=== PATIENT | male | born 1985 | race Caucasian/White ===

== ENCOUNTER 2018-01-10 16:53 | Inpatient (IN) | payer OTHER ==
[~2018-01-10] VITALS: Ht 188 cm; Wt 81.6 kg
--- NOTE | 2018-01-10 20:00 | NUR ---
INTAKE ASSESSMENT BP: 168/89, HR: 78, RR:16, SpO2: 96%, T:98.1 Pt is stable and able to be admitted on the unit. Unit protocols regarding medications and vital signs were explained. Pt verbalized understanding. Will continue admission upon arrival on the unit.
[2018-01-10] MEDS ORDERED: DOXY100T2 PO (20:03)
[2018-01-10] MEDS ORDERED: CEPH500C2 PO (20:07)
[2018-01-10] MEDS ORDERED: LEVE500T20 PO (20:07)
[2018-01-10] MEDS ORDERED: LORAZEPAM 1 MG TABLET PO PRN (20:15)
[2018-01-10] MEDS ORDERED: ONDANSETRON 4 MG/2 ML VIAL IM PRN (20:15)
[2018-01-10] MEDS ORDERED: LOPERAMIDE HCL 2 MG CAPSULE PO PRN ×2 (20:15)
[2018-01-10] MEDS ORDERED: LORAZEPAM 2 MG/1 ML VIAL IM PRN (20:15)
[2018-01-10] MEDS ORDERED: MAG HYDROX/AL HYDROX/SIMETH 30 ML LIQUID UDC PO PRN (20:15)
[2018-01-10] MEDS ORDERED: diphenhydrAMINE 50 MG CAPSULE PO PRN (20:15)
[2018-01-10] MEDS ORDERED: IBUPROFEN 600 MG TABLET PO PRN (20:15)
[2018-01-10] MEDS ORDERED: MIRALAX 17 GM POWD.PACK PO PRN (20:15)
[2018-01-10] MEDS ORDERED: ONDANSETRON ODT 4 MG TAB.RAPDIS SL PRN (20:15)
[2018-01-10] MEDS: LEVETIRACETAM 500 MG TABLET PO SCH (20:15)
[2018-01-10] MEDS ORDERED: PHENOBARBITAL 60 MG TABLET PO ONE (20:30)
[2018-01-10] MEDS ORDERED: TRET45GE36 TP (20:58)
[2018-01-10] MEDS ORDERED: MUPI22OI2 (20:58)
[2018-01-10] MEDS: DOXYCYCLINE HYCLATE 100 MG TABLET PO SCH (21:00)
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
[2018-01-10 22:07] LABS: *AMPHETAMINE, URINE NEGATIVE (NEGATIVE); *BARBITURATE, URINE NEGATIVE (NEGATIVE); *CANNABINOID, URINE POSITIVE (NEGATIVE); *COCCAINE, URINE NEGATIVE (NEGATIVE); *OPIATE, URINE NEGATIVE (NEGATIVE); *PHENCYCLIDINE SCREEN,URINE NEGATIVE (NEGATIVE)
--- NOTE | 2018-01-10 22:28 | NUR ---
PRN ZOFRAN SL & BENADRYL Patient reports nausea and difficulty sleeping stating, "I've been up since 4am but I can't sleep." PRN Zofran given SL and PRN Benadryl given PO. Safety measures in place, side rails up x2, bed locked in low position, call light within reach. Will monitor for effectiveness.
[2018-01-10 22:29] LABS: BASOPHILS # (AUTO) 0.1 K/uL (0.0-8.0); EOSINOPHILS # (AUTO) 0.2 K/uL (0.0-0.7); EOSINOPHILS % (AUTO) 1.8 % (0.0-7.0); HEMATOCRIT 41.8 % (36.7-47.1); HEMOGLOBIN 14.3 g/dL (12.5-16.3); LYMPHOCYTES # (AUTO) 3.3 K/uL (20.0-40.0); LYMPHOCYTES % (AUTO) 36.6 % (20.5-51.5); MEAN CORPUSCULAR HEMOGLOBIN 32.3 uug (23.8-33.4); MEAN CORPUSCULAR HGB CONC 34 g/dL (32.5-36.3); MEAN CORPUSCULAR VOLUME 94.4 fL (73.0-96.2); MONOCYTES # (AUTO) 0.8 K/uL (2.0-10.0); MONOCYTES % (AUTO) 8.7 % (0.0-11.0); NEUTROPHILS # (AUTO) 4.7 K/uL (1.8-8.9); NEUTROPHILS % (AUTO) 51.9 % (38.5-71.5); PLATELET COUNT (AUTO) 525 K/uL (152-348); RED BLOOD CELL COUNT(AUTO) 4.42 MIL/uL (4.06-5.63)
--- NOTE | 2018-01-10 22:58 | NUR ---
PRN ZOFRAN REASSESSMENT Patient reports that nausea has improved and asks nurse for a snack from the kitchen. PRN Zofran noted to be effective. Safety measures in place, call light within reach. Will continue to monitor.
--- NOTE | 2018-01-10 23:28 | NUR ---
PRN BENADRYL REASSESSMENT Patient reports feeling awake and unable to sleep at this time. PRN Benadryl noted to be ineffective. Safety measures in place, side rails up x2, bed locked in low position, call light within reach. Will continue to monitor.
[2018-01-10] MEDS ORDERED: TRAZODONE 50 MG TABLET PO ONE (23:30)
[2018-01-10] MEDS: LORAZEPAM 1 MG TABLET PO PRN (23:30)
--- NOTE | 2018-01-10 23:30 | NUR ---
CIWA 16, PRN ATIVAN 2mg & ONE-TIME TRAZODONE 50mg Patient continues to be anxious, restless, agitated and irritable, unable to sleep. He complains of feeling extremely cold, he has requested 3 extra blankets, and continues to be diaphoretic and tremulous. Current CIWA 16. PRN Ativan 2mg given PO for CIWA greater than or equal to 16. One-time Trazodone 50mg given PO for difficulty sleeping. Safety measures in place, call light within reach. Will monitor for effectiveness.
[2018-01-10] MEDS ORDERED: BUPR100T6 PO (23:35)
[2018-01-10] MEDS ORDERED: EMTR1TAB6 PO (23:35)
[2018-01-10] MEDS ORDERED: ACET-2154 PO (23:35)
[2018-01-10] MEDS ORDERED: BUPR-51 PO (23:35)
[2018-01-10] MEDS ORDERED: VALA500T34 PO (23:35)
[2018-01-10 23:54] LABS: ETHANOL < 3 MG/DL (0-0)
[2018-01-10 23:59] LABS: ALANINE AMINOTRANSFERASE 88 U/L (16-63); ALKALINE PHOSPHATASE 65 U/L (50-136); ASPARTATE AMINOTRANSFERASE 50 U/L (15-37); BILIRUBIN,TOTAL 0.2 mg/dL (0.2-1.0); CARBON DIOXIDE 30 mmol/L (21-32); CHLORIDE 102 mmol/L (98-107); CREATININE 1.3 mg/dL (0.6-1.3); GLUCOSE 88 mg/dL (74-106); MAGNESIUM 1.7 mg/dL (1.8-2.4); POTASSIUM 3.9 mmol/L (3.5-5.1); TOTAL PROTEIN, SERUM 7.2 g/dL (6.4-8.2); UREA NITROGEN, BLOOD 9 mg/dL (7-18)
[2018-01-11] VITALS: BP 132/60
--- NOTE | 2018-01-11 00:30 | NUR ---
CIWA 14, PRN ATIVAN 2mg REASSESSMENT Patient verbalizes improvement in withdrawal symptoms. Current CIWA 14. PRN Ativan noted to be effective. Patient has turned off the lights in his room stating, "I'm going to try and sleep now." Safety measures in place, side rails up x2, bed locked in low position, call light within reach. Will continue to monitor.
[2018-01-11 00:57] LABS: THYROID STIMULATING HORMONE 1.077 mIU/mL (0.358-3.740)
[2018-01-11 04:00] VITALS: BP 104/56
--- NOTE | 2018-01-11 04:00 | NUR ---
CIWA DEFERRED CIWA deferred at this time due to patient sleeping; to be assessed while patient is awake. Respirations even and unlabored, 16/min. Safety measures in place, side rails up x2, bed locked in low position, call light within reach. Will continue to monitor.
--- NOTE | 2018-01-11 04:49 | NUR ---
CIWA 12, PRN ATIVAN 1mg Patient is awake and complaining of anxiety, restlessness, chills and diaphoresis, fine tremors noted bilaterally. Current CIWA 12. PRN Ativan 1mg given PO for CIWA between 5-15, per MD order. Safety measures in place, side rails up x2, bed locked in low position, call light within reach. Will monitor for effectiveness.
--- NOTE | 2018-01-11 05:49 | NUR ---
PRN ATIVAN REASSESSMENT Patient is asleep in bed, eyes closed, respirations even and unlabored. Unable to reassess at this time. Safety measures in place, side rails up x2, bed locked in low position, call light within reach. Will continue to monitor.
--- NOTE | 2018-01-11 07:35 | NUR ---
END OF SHIFT Patient is a 32-year-old male admitted on 01/10/18 for benzodiazepine withdrawal. Patient will begin a 5-day Phenobarbital taper today. Patients last CIWA was 12 this morning at 0450. Patient received PRN Zofran, PRN Benadryl, PRN Ativan 2mg, and PRN Ativan 1mg. Patient also received a one-time Trazodone 50mg PO. PRN medications noted to be effective. Patient slept for 5 hours, total intake of 900mL, void x2, stool x0. Patient is on fall and seizure precautions with one possible seizure on 11/19/17, after which he began taking Keppra daily as prophylaxis. Safety measures in place, side rails up x2, bed locked in low position, call light within reach. Will endorse to day shift.
[2018-01-11 08:00] VITALS: BP 122/65
--- NOTE | 2018-01-11 08:05 | NUR ---
START OF SHIFT: Received Pt A/O X 4. He presents with fidgety with anxious mood and congruent affect. He reports mild nausea, anxiety,irritability and agitation.He also reports shoulder pain 5/10 on pain scale Phenobarbital taper in progress to manage s/s of w/d. PRN Tylenol given to manage pain. Will monitor effectiveness. Encouraged increased fluids to assist in facilitating detox process. PPD refused. Will continue to monitor and manage s/s of w/d.
[2018-01-11] MEDS: ACETAMINOPHEN 325 MG TABLET PO PRN ×2 (08:40→17:13)
[2018-01-11] MEDS: LEVETIRACETAM 500 MG TABLET PO SCH ×2 (08:40→17:12)
[2018-01-11] MEDS: MULTIVITAMINS,THERAPEUTIC TABLET PO SCH (08:41)
[2018-01-11] MEDS: CEPHALEXIN MONOHYDRATE 500 MG CAPSULE PO SCH ×2 (08:41→20:15)
[2018-01-11] MEDS: DOXYCYCLINE HYCLATE 100 MG TABLET PO SCH ×2 (08:41→20:15)
[2018-01-11] MEDS: PHENOBARBITAL 60 MG TABLET PO SCH ×3 (08:41→20:15)
[2018-01-11] MEDS ORDERED: MAGNESIUM OXIDE 400 MG TABLET PO ONE (09:00)
[2018-01-11] MEDS ORDERED: 5 DAY PHENOBARBITAL TAPER -SERENITY PROTOCOL PO PRN (09:00)
[2018-01-11] MEDS ORDERED: TUBERCULIN,PURIF.PROT.DERIV. 5 TU/0.1 ML TEST ID ONE (09:00)
--- NOTE | 2018-01-11 09:05 | NUR ---
Pt states the Tylenol was effective. Pain is now 2/10 on scale.
[2018-01-11] MEDS: LORAZEPAM 1 MG TABLET PO PRN (10:28)
--- NOTE | 2018-01-11 10:30 | NUR ---
Pt reports agitation ,anxiety,sweats and restlessness. CIWA 16. Ativan 2mg PO PRN given to manage s/s of w/d. Will monitor effectiveness.
--- NOTE | 2018-01-11 11:15 | NUR ---
Pt states the Ativan was effective.He states he feels a little bit calmer. CIWA 11. Will continue to monitor and offer support.
[2018-01-11 12:00] VITALS: BP 122/65
[2018-01-11] MEDS: VALACYCLOVIR HCL 500 MG TABLET PO SCH (14:00)
[2018-01-11] MEDS ORDERED: [UNRECOGNIZED DRUG - OTHER] TOP PRN (14:00)
[2018-01-11] MEDS: [UNRECOGNIZED DRUG - OTHER] PO SCH (14:00)
[2018-01-11] MEDS ORDERED: TRETINOIN 0.1% TOP PRN (14:00)
[2018-01-11 16:00] VITALS: BP 137/64
--- NOTE | 2018-01-11 19:16 | NUR ---
END OF SHIFT: Pt started on Phenobarbital taper today to manage s/s of w/d which include anxiety,agitation,sweats,restlessness and mild nausea. Last CIWA 10. PRN Tylenol given X 2 for shoulder pain and effective. Ativan 2 mg PO PRN given for elevated CIWA and effective. He was compliant with increased fluids. He was unable to sleep last night and is concerned he wont be able to sleep again tonight. Discussed with Psych MD but no new orders received. Will endorse to evening or night nurse supervisor nurse.
--- NOTE | 2018-01-11 19:30 | NUR ---
Start of Shift Received Patient. Per endorsement, Patient is a 32 year old male currently receiving a modified Phenobarbital taper for Benzodiazepine withdrawal. Patient continues on home medications of Keflex, Doxycycline, and Keppra. PPD and Flu vaccine refused. Patient Received PRN Ativan 2mg for elevated CIWA of 16 with medication noted to be effective with CIWA 11. He also refused PRN Tylenol x2 with shoulder pain. Last noted CIWA 10. Upon rounds patient was noted to in his room, awake, alert and verbally responsive. He was noted to request medication as soon as medication can be administered. He states Im normally one that goes to be early. Patient is noted to restless, anxious, easily agitated, flushed, and tremulous to touch. Reviewed scheduled medication with patient and he verbalized understanding. All needs attended to promptly. Will continue with plan of care as ordered.
[2018-01-11 20:09] VITALS: BP 139/80
[2018-01-11] MEDS: CLONIDINE HCL 0.1 MG TABLET PO PRN (20:15)
--- NOTE | 2018-01-11 20:15 | NUR ---
CIWA Assessment/PRN Medication Administration Patient is noted verbalizing increased anxiety, chills, sweats, restlessness, tremulous, and agitated. CIWA noted to be 14. PRN Clonidine administered with routine medications. All needs attended to promptly. Will continue to monitor.
[2018-01-11] MEDS ORDERED: ACETAMINOPHEN ES 500 MG TABLET ONE (21:11)
[2018-01-11] MEDS: ACETAMINOPHEN ES 500 MG TABLET PO PRN (21:15)
[2018-01-11] MEDS: TRAZODONE 50 MG TABLET PO PRN (21:15)
--- NOTE | 2018-01-11 21:15 | NUR ---
PRN Medication Reassessment/PRN Medication Administration Patient is noted in bed. He continues to be restless, anxious, and verbalizing inability of falling asleep, and shoulder pain. New orders obtains for an increase in trazodone and Tylenol extra strength. Orders carried out and administered as ordered. PRN Clonidine noted to be effective in minimizing sweats and chills. All needs attended to promptly. Will continue plan of care as ordered.
--- NOTE | 2018-01-11 22:15 | NUR ---
PRN Medication Reassessment patient is noted in bed with eyes closed. breathing even and non labored. No signs of restlessness or discomfort noted. PRN Trazodone and Tylenol noted to be effective. Will continue to monitor.
--- NOTE | 2018-01-12 00:20 | NUR ---
CIWA and Vitals Patient is noted in bed with eyes closed. Breathing even and non labored. No signs of restlessness or discomfort noted. Vitals Refused. CIWA not able to be completed as per order. Will continue to monitor.
--- NOTE | 2018-01-12 04:10 | NUR ---
Vitals and CIWA Patient is noted in bed with eyes closed. breathing even and non labored. no signs of facial grimacing or restlessness noted. Vitals Refused. CIWA not able to be completed as per order. Will continue to monitor.
--- NOTE | 2018-01-12 05:03 | NUR ---
One-time Ativan Patient with increasing agitation, is restless and anxious. Patient also c/o intensifying gross tremors and appears flushed. CIWA=17. contacted and he ordered one-time Ativan 2 mg PO.
[2018-01-12 05:07] VITALS: BP 123/71
[2018-01-12] MEDS ORDERED: ACETAMINOPHEN ES 500 MG TABLET ONE (05:26)
[2018-01-12] MEDS ORDERED: LORAZEPAM 1 MG TABLET PO ONE (05:30)
[2018-01-12] MEDS: ACETAMINOPHEN ES 500 MG TABLET PO PRN ×2 (05:39→20:03)
[2018-01-12 06:06] LABS: HEPATITIS B SURFACE AG Negative (Negative)
--- NOTE | 2018-01-12 07:17 | NUR ---
End of Shift Patient is noted in bed with eyes closed. Breathing even and non labored. Patient continues on a modified Phenobarbital taper for Benzodiazepine withdrawal. Patient continues on home medications of Keflex, Doxycycline, and Keppra. Patient received PRN Clonidine, Trazodone, Tylenol ES x2, and Ativan 2mg x1. Patients last noted CIWA 17. Patient continues to be monitored for increased anxiety, restlessness, and irritable, flushed, tremulous, and increased pain to left shoulder. Patient noted to sleep a total of 7 hours. All needs attended to promptly. Will endorse to continue with plan of care as ordered.
[2018-01-12 08:00] VITALS: BP 113/60
--- NOTE | 2018-01-12 08:00 | NUR ---
Start of Shift Notes/CIWA Assessment: Received endorsement from night nurse. Patient is a 32 year old male admitted on 01/10/2018 for BZO withdrawal who was placed on a 5-day Phenobarbital taper as ordered. Per night nurse, patient received Tylenol ES x 2 due to shoulder pain from a ground level fall, OT Ativan 2 mg, Clonidine and Trazodone as ordered. Patient's last CIWA 17. Slept for 7 hours. Patient was received in his room. Appears disheveled. Alert and oriented x 4. No changes in LOC noted. Denies AV hallucinations. Denies S/I or H/I noted. Worried facial expression noted. Affect is flat. Mood congruent. He complains of racing thoughts, intermittent perspiration during the night, anxiety, nervousness, difficulty concentrating, and fatigue. He is noted with gross tremors, and facial flushing. CIWA 17 at this time. Room is messy. Encouraged patient to maintain his personal hygiene and space. Educated patient on his current plan of care for the day and his medication regimen. Encouraged oral fluid intake and encouraged group participation to learn new skills to prevent relapse. All needs met and attended. Will continue to monitor.
[2018-01-12] MEDS: PHENOBARBITAL 60 MG TABLET PO SCH ×4 (08:28→20:03)
[2018-01-12] MEDS: [UNRECOGNIZED DRUG - OTHER] PO SCH (08:28)
[2018-01-12] MEDS: LEVETIRACETAM 500 MG TABLET PO SCH ×2 (08:29→16:13)
[2018-01-12] MEDS: DOXYCYCLINE HYCLATE 100 MG TABLET PO SCH ×2 (08:29→20:02)
[2018-01-12] MEDS: MULTIVITAMINS,THERAPEUTIC TABLET PO SCH (08:29)
[2018-01-12] MEDS: CEPHALEXIN MONOHYDRATE 500 MG CAPSULE PO SCH ×2 (08:29→20:03)
[2018-01-12] MEDS: VALACYCLOVIR HCL 500 MG TABLET PO SCH (08:32)
[2018-01-12] MEDS ORDERED: buPROPion 75 MG TABLET PO SCH (09:00)
--- NOTE | 2018-01-12 09:05 | NUR ---
Wellbutrin at 0900 not administered: Patient refused to take Wellbutrin at 0900. Educated patient on the risk and disadvantages of non-adhering to meds but patient still refused. Offered 3x. Patient still refused. Will notify psych MD. Will continue to monitor. Wellbutrin not administered.
[2018-01-12] MEDS ORDERED: METHOCARBAMOL 500 MG TABLET PO PRN (10:45)
[2018-01-12 12:00] VITALS: BP 116/58
[2018-01-12] MEDS: METHOCARBAMOL 750 MG TABLET PO PRN (12:13)
--- NOTE | 2018-01-12 12:13 | NUR ---
CIWA Assessment/Robaxin 750 mg PO given: CIWA 14, patient continues to present with gross tremors, anxiety, agitation, racing thoughts, difficulty concentrating, fatigue, malaise and complains of right shoulder pain. Ice packs provided. Medicated patient with Robaxin 750 mg PO as ordered. Will monitor for effectiveness.
--- NOTE | 2018-01-12 13:13 | NUR ---
Re-assessment: Robaxin Patient verbalizes that pain level is now a 3 out of 10. PRN Robaxin was effective.
[2018-01-12] MEDS: CLONIDINE HCL 0.1 MG TABLET PO PRN ×2 (13:47→20:02)
[2018-01-12] MEDS: HYDROXYZINE PAMOATE 25 MG CAPSULE PO PRN ×2 (13:47→20:03)
--- NOTE | 2018-01-12 13:47 | NUR ---
Clonidine 0.1mg/Vistaril 50 mg PO given: Patient was noted to complain of increased anxiety, facial flushing, sweating and tremors. He complains of racing thoughts and appears restless and agitated. Pacing in the room. Non-pharmacological interventions provided but ineffective. Medicated patient with Clonidine 0.1mg PO and Vistaril 50 mg PO as ordered. Will monitor for effectiveness.
--- NOTE | 2018-01-12 14:47 | NUR ---
Re-assessment: Clonidine/Vistaril Patient verbalizes relief from anxiety. He states "I feel more mellow, thank you." PRN Vistaril and Clonidine effective.
[2018-01-12 16:00] VITALS: BP 125/80
--- NOTE | 2018-01-12 16:06 | NUR ---
CIWA Assessment: CIWA 12, patient continues to present with gross tremors, anxiety, agitation, racing thoughts, difficulty concentrating, fatigue, malaise and generalized discomfort. Will medicate patient as ordered.
--- NOTE | 2018-01-12 19:02 | NUR ---
End of Shift Notes: Patient continues to be on 5-day Phenobarbital taper as ordered. No adverse reactions noted. VS monitored closely. No significant abnormalities noted. Withdrawal symptoms were closely monitored. Initial CIWA 17, patient presented with gross tremors, intermittent perspiration, facial flushing, racing thoughts, fatigue, insomnia, difficulty concentrating, myalgia, worried facial expression, depressed mood, poor regards to hygiene and generalized discomfort. Last CIWA 12. Patient verbalizes that Phenobarbital taper has been effective in reducing his withdrawal symptoms. He was unable to participate in group due to generalized discomfort although encouraged. Medicated patient with Robaxin 750 mg PO at 1213, Clonidine and Vistaril 50 mg PO at 1347 with help. Patient requires encouragement to attend group and socialize due to social isolation. Appetite fair. Oral fluids encouraged. Patient was seen and examined by Dr. Redd with new orders for Robaxin and to recheck Mag level as ordered. All needs met and attended. Will continue to monitor closely.
--- NOTE | 2018-01-12 19:30 | NUR ---
Start of Shift Patient Received. Patient is a 32 year old male that continues on a modified Phenobarbital taper for Benzo withdrawal. Patient tolerated well with no adverse reactions noted. Patient was seen and examined by MD with new order for Robaxin PRN and new orders for labs in the AM. Patient received PRN Robaxin, Clonidine, and Vistaril administered with medications noted to be effective. Last noted CIWA 12. Upon rounds patient is noted in his room, awake, in bed watching TV. Patient is noted with increased anxiety, intermittent chills and sweats, tremors, flushed face, with worried, depressed facial expression. Room is noted to be odorous. Encouraged patient to shower and patient verbalized understanding. Linen was changed for patient. All needs attended to promptly. Will continue plan of care as ordered.
[2018-01-12 20:00] VITALS: BP 138/81
--- NOTE | 2018-01-12 20:00 | NUR ---
CIWA Assessment/PRN Medication Administration Patient is noted with increased anxiety, chills, sweats, restlessness, irritability, inability of falling asleep, tremulous, and increased pain to the right shoulder due to previous injury. PRN Trazodone, Vistaril, Clonidine, Tylenol, and MOM administered with routine medications. Will continue to monitor.
[2018-01-12] MEDS: MAGNESIUM HYDROXIDE 30 ML LIQUID UDC PO PRN (20:01)
[2018-01-12] MEDS: TRAZODONE 50 MG TABLET PO PRN (20:02)
--- NOTE | 2018-01-12 21:00 | NUR ---
PRN medication Reassessment patient is noted in bed with eyes closed. Breathing even and non labored. No signs of restlessness or discomfort noted. PRN Clonidine, Tylenol, Trazodone, Vistaril all noted to be effective. Will continue to monitor.
--- NOTE | 2018-01-13 00:24 | NUR ---
Vitals and CIWA Assessment patient is noted in bed with eyes closed. Breathing even and non labored. No signs of restlessness or discomfort noted. Vitals Refused. CIWA assessment not able to be completed as per order. Will continue to monitor.
--- NOTE | 2018-01-13 04:30 | NUR ---
CIWA and Vitals Patient is noted in bed with eyes closed. Breathing even and non labored. No restlessness or facial grimacing noted. Vitals Refused. CIWA not able to be completed as per order. Will continue to monitor.
--- NOTE | 2018-01-13 07:02 | NUR ---
End of Shift Patient is noted in bed with eyes closed. Breathing even and non labored. He continues on a modified Phenobarbital taper for Benzo withdrawal. Patient tolerated well with no adverse reactions noted. Vital signs and withdrawal symptoms closely monitored. Patient Received PRN Clonidine, Vistaril, Trazodone, and Tylenol with medications noted to be effective. PRN MOM administered with morning shift to reassess. Patient noted to sleep a total of 8 hours. Last noted CIWA 14. Patient continues to be monitored for intermittent chills and sweats, tremors, anxiety, restlessness, and agitation. He is noted with worried, depressed expression. All needs attended to promptly. Will endorse to continue plan of care as ordered.
[2018-01-13 08:00] VITALS: BP 119/74
--- NOTE | 2018-01-13 08:15 | NUR ---
START OF SHIFT: Received Pt A/O X 4. He presents with anxious mood and congruent affect. He reports anxiety,irritability and intermittent sweats.CIWA 9. He also reports shoulder pain 6/10 on pain scale Phenobarbital taper in progress to manage s/s of w/d. PRN Tylenol ES given to manage pain. Will monitor effectiveness. Encouraged increased fluids to assist in facilitating detox process.Encouraged group attendance to improve coping skills and prevent relapse. Will continue to monitor and manage s/s of w/d.
[2018-01-13] MEDS: CEPHALEXIN MONOHYDRATE 500 MG CAPSULE PO SCH ×2 (08:36→20:36)
[2018-01-13] MEDS: DOXYCYCLINE HYCLATE 100 MG TABLET PO SCH ×2 (08:36→20:36)
[2018-01-13] MEDS: LEVETIRACETAM 500 MG TABLET PO SCH ×2 (08:37→16:40)
[2018-01-13] MEDS: MULTIVITAMINS,THERAPEUTIC TABLET PO SCH (08:37)
[2018-01-13] MEDS: PHENOBARBITAL 60 MG TABLET PO SCH ×3 (08:37→20:36)
[2018-01-13] MEDS: ACETAMINOPHEN ES 500 MG TABLET PO PRN (08:37)
[2018-01-13] MEDS: [UNRECOGNIZED DRUG - OTHER] PO SCH (08:38)
[2018-01-13] MEDS: VALACYCLOVIR HCL 500 MG TABLET PO SCH (08:41)
--- NOTE | 2018-01-13 09:15 | NUR ---
PRN Tylenol ES was effective. Pt states pain now 3/10 on pain scale.
--- NOTE | 2018-01-13 10:55 | NUR ---
Therapist prompted client to attend group therapy.
[2018-01-13] MEDS: HYDROXYZINE PAMOATE 25 MG CAPSULE PO PRN (10:56)
--- NOTE | 2018-01-13 10:57 | NUR ---
PRN Vistaril 50 mg given for reported anxiety. Will monitor effectiveness.
--- NOTE | 2018-01-13 11:02 | NUR ---
Endorsement given. All pertinent information relayed. Pt is A/O X 4.
--- NOTE | 2018-01-13 11:03 | NUR ---
ENDORSEMENT Pt endorsed to me. All information received.
[2018-01-13 12:00] VITALS: BP 132/81
--- NOTE | 2018-01-13 12:00 | NUR ---
CIWA ASSESSMENT ciwa=10. Bilateral hand tremors noted. Anxious and restless. Irritable. Complaints of generalized discomfort.
[2018-01-13] MEDS: METHOCARBAMOL 750 MG TABLET PO PRN ×2 (12:16→20:37)
--- NOTE | 2018-01-13 12:16 | NUR ---
PRN BACTROBAN ROBAXIN Complaints of right shoulder ache 08/30. Robaxin po prn per MD order given. Bactroban topical prn per MD order given for wound on face.
[2018-01-13] MEDS: MUPIROCIN 2% OINT 22 GM TUBE TP PRN (12:19)
--- NOTE | 2018-01-13 13:16 | NUR ---
PRN [place] Pt states medication effective.
[2018-01-13] MEDS: LIDOCAINE 5% PATCH TD PRN (14:39)
--- NOTE | 2018-01-13 14:43 | NUR ---
PRN LIDOCAINE Pt with complaints of right shoulder pain 08/30. Lidocaine patch prn per MD order given.
--- NOTE | 2018-01-13 15:43 | NUR ---
PRN LIDOCAINE EVAL pt states patch is effective. Pain 4/10.
[2018-01-13 16:00] VITALS: BP 154/98
--- NOTE | 2018-01-13 16:00 | NUR ---
CIWA ASSESSMENT ciwa=10. Anxious and restless. Pressured speech. Bilateral hand tremors noted. Complaints of generalized discomfort and intermittent perspiration.
[2018-01-13] MEDS: CLONIDINE HCL 0.1 MG TABLET PO PRN (16:40)
--- NOTE | 2018-01-13 16:48 | NUR ---
PRN CATAPRES Pt states very anxious. ei=[id number]. Catapres po prn per MD order given.
--- NOTE | 2018-01-13 17:48 | NUR ---
PRN CATAPRES EVAL Pt states medication effective.
--- NOTE | 2018-01-13 18:36 | NUR ---
END OF SHIFT Pt 32 y/o male admitted for medically supervised benzo withdrawal. Pt alert and oriented to name, place, and time. P[place]. Skin warm and moist to touch. Respirations even and unlabored. Appears disheveled. Clothes and empty drink bottles scattered throughout the room. Encouraged to maintain hygiene. Anxious and restless. Periods of irritability and agitation. Bilateral hand tremors noted. Complaints of generalized discomfort. Isolative to room with minimal peer interaction. Pt attended group activity. Last ciwa=10@1600. Pt is on a 5 day Phenobarbital taper and is on day 3. Bed on lowest position with side rails x2 up for safety. Call light within reach.
--- NOTE | 2018-01-13 19:30 | NUR ---
Start of Shift Patient Received. Per endorsement, patient continues on a modified Phenobarbital taper for Benzo withdrawal. Patient tolerated well with no adverse reactions noted. Patient was seen and evaluated by MD with new orders to increase Robaxin to 1500mg as well as new order for Lidocaine patch to right shoulder. Patient received PRN Clonidine, Vistaril, Tylenol, and Robaxin. Last noted CIWA 10. Upon rounds, patients room is noted to be odorous, with clothes and empty drink bottles noted throughout the room. Patient is noted in the activities room participating in a group meeting. Will continue plan of care as ordered.
[2018-01-13 20:09] VITALS: BP_SYST 118; BP_SYST 156; BP_DIAS 72; BP_DIAS 75
--- NOTE | 2018-01-13 20:33 | NUR ---
WA Assessment Patient is noted in his room, awake, alert and verbally responsive. Breathing even and non labored. He is noted to verbalize racing thoughts, increased sweats, increased anxiety, and agitation. He is noted to be tremulous to touch, restlessness. Patient is disheveled with worried affect. Patient has been noted to be compliant with group and social interactions.
[2018-01-13] MEDS: LACTOBACILLUS RHAMNOSUS GG 1 EACH CAPSULE PO SCH (20:36)
[2018-01-13] MEDS: TRAZODONE 50 MG TABLET PO PRN (20:37)
--- NOTE | 2018-01-13 20:44 | NUR ---
PRN Medication Administration Patient is noted verbalizing increased anxiety, racing thoughts, body aches, inability of falling asleep. PRN Trazodone and Robaxin administered with routine medications. Will continue to monitor.
--- NOTE | 2018-01-13 21:45 | NUR ---
PRN Medication Reassessment Patient is noted in bed with eyes closed. Breathing even and non labored. No signs of restlessness or discomfort noted. PRN Trazodone and Robaxin noted to be effective. Will continue to monitor.
--- NOTE | 2018-01-14 00:30 | NUR ---
CIWA and Vitals Patient is noted in bed with eyes closed. Breathing even and non labored. No signs of restlessness or facial grimacing noted. Vitals Refused. CIWA not able to be completed as per order. Will continue to monitor.
--- NOTE | 2018-01-14 04:30 | NUR ---
CIWA and Vitals Patient is noted in bed with eyes closed. Breathing even and non labored. No signs of restlessness or facial grimacing noted. Patient noted to refuse vitals. CIWA not able to be completed as per order. Will continue to monitor.
[2018-01-14] MEDS: METHOCARBAMOL 750 MG TABLET PO PRN ×2 (05:52→19:57)
--- NOTE | 2018-01-14 05:55 | NUR ---
PRN Medication Administration Patient is noted awake and verbalizing increased shoulder pain. PRN Robaxin administered. Will continue to monitor.
--- NOTE | 2018-01-14 06:59 | NUR ---
PRN Medication Reassessment/ End of Shift Patient is in bed awake, alert and verbally responsive. Breathing even and non labored. Patient continues on a modified Phenobarbital taper for Benzo withdrawal. Patient tolerated well with no adverse reactions noted. Vital signs and withdrawal symptoms closely monitored. Patient received PRN Trazodone, Robaxin x2 with medication noted to be effective. Last noted CIWA 12. Patient continues to be monitored for increased racing thoughts, increased sweats, increased anxiety, and agitation. He is noted to be tremulous to touch, restlessness. Patient is disheveled with worried affect. Patient has been noted to be compliant with group and social interactions. Patients room is noted to be odorous, with clothes and empty drink bottles noted throughout the room. Patient noted to sleep a total of 8 hours. Will endorse to continue plan of care as ordered.
[2018-01-14 08:00] VITALS: BP 126/62
--- NOTE | 2018-01-14 08:00 | NUR ---
START OF SHIFT AND CIWA ASSESSMENT Pt 32 y/o male admitted for medically supervised benzo withdrawal. Pt received in room on bed awake watching television. Pt alert and oriented to name, place, and time. [place]. Skin warm and moist to touch. Respirations even and unlabored. Appears disheveled. Clothes scattered throughout the room. Encouraged to maintain hygiene. Anxious and restless. Pressured speech. Bilateral hand tremors. Complaints of intermittent perspirations. Complaints of body aches, mostly on right shoulder. Ciwa=10 @0800. It was reported that pt slept for 8 hours last night. Ciwa=12@2000. Pt is on a 5 day Phenobarbital taper and is on day 4. Bed on lowest position with side rails x2 up for safety. Call light within reach.
[2018-01-14] MEDS: CEPHALEXIN MONOHYDRATE 500 MG CAPSULE PO SCH ×2 (08:17→20:10)
[2018-01-14] MEDS: PHENOBARBITAL 60 MG TABLET PO SCH ×2 (08:17→20:11)
[2018-01-14] MEDS: DOXYCYCLINE HYCLATE 100 MG TABLET PO SCH ×2 (08:17→20:10)
[2018-01-14] MEDS: MULTIVITAMINS,THERAPEUTIC TABLET PO SCH (08:17)
[2018-01-14] MEDS: LEVETIRACETAM 500 MG TABLET PO SCH ×2 (08:17→16:56)
[2018-01-14] MEDS: LACTOBACILLUS RHAMNOSUS GG 1 EACH CAPSULE PO SCH ×2 (08:17→20:11)
[2018-01-14] MEDS: ACETAMINOPHEN ES 500 MG TABLET PO PRN ×2 (08:18→19:57)
[2018-01-14] MEDS: MUPIROCIN 2% OINT 22 GM TUBE TP PRN (08:18)
[2018-01-14] MEDS: [UNRECOGNIZED DRUG - OTHER] PO SCH (08:18)
[2018-01-14] MEDS: VALACYCLOVIR HCL 500 MG TABLET PO SCH (08:18)
--- NOTE | 2018-01-14 08:30 | NUR ---
PRN TYLENOL BACTROBAN Pt states has c/o right shoulder pain 07/31. Tylenol prn per MD order given. Bactroban topical prn per MD order for wound on face.
--- NOTE | 2018-01-14 09:30 | NUR ---
PRN TYLENOL BACTROBAN Pt states medication effective.
[2018-01-14 12:00] VITALS: BP 155/95
--- NOTE | 2018-01-14 12:00 | NUR ---
CIWA ASSESSMENT ciwa=10. Bilateral hand tremors noted. Anxious and restless. Pressured speech. Intermittent perspiration. Complaints of body aches, mostly on right shoulder.
[2018-01-14] MEDS: CLONIDINE HCL 0.1 MG TABLET PO PRN ×2 (12:20→22:45)
--- NOTE | 2018-01-14 12:23 | NUR ---
PRN CATAPRES Pt anxious and irritable. Catapres po prn per MD order given.
--- NOTE | 2018-01-14 13:23 | NUR ---
PRN CATAPRES EVAL Pt states medication not effective.
[2018-01-14] MEDS: HYDROXYZINE PAMOATE 25 MG CAPSULE PO PRN ×2 (13:32→19:57)
--- NOTE | 2018-01-14 13:33 | NUR ---
PRN VISTARIL Pt anxious and restless. Fidgety in bed. Vistaril po prn per MD order given.
--- NOTE | 2018-01-14 14:33 | NUR ---
PRN VISTARIL EVAL Pt states medication effective.
[2018-01-14] MEDS: LIDOCAINE 5% PATCH TD PRN (14:54)
--- NOTE | 2018-01-14 14:54 | NUR ---
PRN LIDOCAINE PATCH pt with complaints of right shoulder pain 07/31. Lidocaine patch prn per MD order given.
--- NOTE | 2018-01-14 15:54 | NUR ---
PRN LIDOCAINE PATCH EVAL Pt states medication is effective.
[2018-01-14 16:00] VITALS: BP 143/74
--- NOTE | 2018-01-14 16:00 | NUR ---
CIWA ASSESSMENT Ciwa=10. Anxious and restless. Pressured speech. Complaints of intermittent perspirations. Bilateral hand tremors. Complaints of body aches, mostly of right shoulder.
--- NOTE | 2018-01-14 18:32 | NUR ---
END OF SHIFT Pt 32 y/o male admitted for medically supervised benzo withdrawal. Pt alert and oriented to name, place, and time. [place]. Skin warm and moist to touch. Respirations even and unlabored. Appears disheveled. Food wrappings and clothes scattered throughout the room. Encouraged to maintain hygiene. Attended group activity today. Anxious and restless. Pressured speech. Complaints of intermittent perspirations. Complaints of body aches. Bilateral hand tremors. Ciwa=10 @1600. Pt is on a 5 day Phenobarbital taper and is on day 4. Bed on lowest position with side rails x2 up for safety. Call light within reach.
--- NOTE | 2018-01-14 19:14 | NUR ---
Start of shift note Received report from day shift nurse. Pt is a 32 yo male, A+Ox4, presenting to [facility] for medically supervised Benzo withdrawal. Pt noted with bilateral shoulder pain, anxiety, agitation, and restlessness. Pt has HX of anxiety, depression, PTSD, and insomnia which will be monitored during shift. Pt is on 5 day Phenobarbital taper, tolerated well. Respirations even and unlabored. Will continue to monitor.
--- NOTE | 2018-01-14 19:57 | NUR ---
PRN Robaxin and Tylenol ES Pt c/o bilateral shoulder pain 09/30 and requested for PRN Robaxin and Tylenol ES. Medications given and tolerated well. Will reassess within 1 HR. Will continue to monitor. Addendum: 01/15/18 at 0703 by CHANCE MATA LVN PRN Vistaril also given and tolerated well
[2018-01-14 20:10] VITALS: BP 153/79
--- NOTE | 2018-01-14 20:55 | NUR ---
PRN Robaxin and Tylenol ES Reassessment Medications effective. Pt expresses reduction of pain to 5/10. No s/s of ASE noted at this time. Respirations even and unlabored. Will continue to monitor. Addendum: 01/15/18 at 0704 by CHANCE MATA LVN Reassessed for Vistaril as well
[2018-01-14] MEDS: TRAZODONE 50 MG TABLET PO PRN (22:45)
--- NOTE | 2018-01-14 22:48 | NUR ---
PRN Clonidine and Trazodone Pt c/o anxiety and inability to sleep. PRN Clonidine and Trazodone given and tolerated well. Will reassess within 1 HR. Will continue to monitor.
--- NOTE | 2018-01-14 23:45 | NUR ---
PRN Clonidine and Trazodone Reassessment Medications effective. Pt is resting well in bed. No s/s of ASE noted at this time. Respirations even and unlabored. Will continue to monitor.
--- NOTE | 2018-01-15 00:55 | NUR ---
V/S refused and CIWA Assessment deferred for sleep. Respirations even and unlabored. Will continue to monitor.
--- NOTE | 2018-01-15 04:51 | NUR ---
V/S refused and CIWA Assessment deferred for sleep. Respirations even and unlabored. Will continue to monitor.
--- NOTE | 2018-01-15 07:00 | NUR ---
End of shift note Pt was continuously noted with anxiety, bilateral shoulder pain, agitation, and restlessness. Pt remained in room for majority of shift except to get food from kitchen. Pt remained cooperative and compliant with all aspects of treatment. Pt was given PRN Robaxin 1,500mg, Vistaril, and Tylenol ES 1,000mg @1956 and PRN Clonidine, and Trazodone @2244. Pt remains on 5 day Phenobarbital taper, tolerated well. Pt slept for a total of 7 HRS. Last CIWA: 10 @2009. Respirations even and unlabored. Will endorse to day shift nurse.
--- NOTE | 2018-01-15 07:32 | NUR ---
Start of shift note; Received report from night nurse. Patient is a 32 year old male admitted on 01/10/18 for Benzodiazepine withdrawal. Patient was placed on 5 day Phenobarbital taper, on his last day of taper. Patient received PRN Robaxin, Tylenol ES, Vistaril and Clonidine noted to be effective. Patient slept for 7 hours. Patient's last CIWA score is 10 per endorsement. All safety measures secured. Will continue to monitor patient.
[2018-01-15 08:00] VITALS: BP 106/62
--- NOTE | 2018-01-15 08:00 | NUR ---
CIWA Assessment; Patient is AOX4, flushed face noted, appears anxious and agitated complaining of muscle aches, intermittent sweats, stomach cramps, irritability, mild tremors, headache and insomnia. Patient current CIWA is 11. Patient received his last dose of Phenobarbital taper. All safety measures secured. Will continue to monitor patient.
[2018-01-15 08:12] LABS: BILIRUBIN,DIRECT 0.1 mg/dL (0.0-0.2); BILIRUBIN,TOTAL 0.3 mg/dL (0.2-1.0); TOTAL PROTEIN, SERUM 7.1 g/dL (6.4-8.2)
[2018-01-15] MEDS: MULTIVITAMINS,THERAPEUTIC TABLET PO SCH (08:13)
[2018-01-15] MEDS: HYDROXYZINE PAMOATE 25 MG CAPSULE PO PRN ×2 (08:13→20:08)
[2018-01-15] MEDS: [UNRECOGNIZED DRUG - OTHER] PO SCH (08:13)
[2018-01-15] MEDS: LACTOBACILLUS RHAMNOSUS GG 1 EACH CAPSULE PO SCH ×2 (08:13→20:08)
[2018-01-15] MEDS: DOXYCYCLINE HYCLATE 100 MG TABLET PO SCH ×2 (08:13→20:08)
[2018-01-15] MEDS: LEVETIRACETAM 500 MG TABLET PO SCH ×2 (08:13→16:42)
[2018-01-15] MEDS: VALACYCLOVIR HCL 500 MG TABLET PO SCH (08:13)
--- NOTE | 2018-01-15 08:13 | NUR ---
PRN medication; Patient is AOX4, complaining of anxiety and agitation. Patient unable to sit still, pacing back and forth in the room. PRN Vistaril 50 mg PO given for anxiety. Will continue to monitor for effectiveness of medication.
[2018-01-15] MEDS: CEPHALEXIN MONOHYDRATE 500 MG CAPSULE PO SCH ×2 (08:14→20:08)
[2018-01-15] MEDS ORDERED: PHENOBARBITAL 60 MG TABLET PO SCH (09:00)
--- NOTE | 2018-01-15 09:13 | NUR ---
Re-assessment; Patient is AOX4, patient is calm and comfortable at this time. PRN Vistaril noted to be effective.
[2018-01-15] MEDS ORDERED: DOXY100T2 PO (10:50)
[2018-01-15] MEDS ORDERED: CEPH500C2 PO (10:50)
[2018-01-15] MEDS ORDERED: LEVE500T9 PO (10:50)
[2018-01-15 12:00] VITALS: BP 118/73
--- NOTE | 2018-01-15 12:00 | NUR ---
CIWA Assessment; Patient is AOX4, flushed face noted, appears anxious and agitated complaining of muscle aches, intermittent sweats, stomach cramps, irritability, mild tremors, headache and insomnia. Patient continues to have CIWA of 11. Patient received his last dose of Phenobarbital taper this morning. All safety measures secured. Will continue to monitor patient.
--- NOTE | 2018-01-15 12:03 | NUR ---
Therapist prompted client to attend twice daily group therapy sessions.
[2018-01-15 16:00] VITALS: BP 144/84
[2018-01-15] MEDS: CLONIDINE HCL 0.1 MG TABLET PO PRN (16:48)
--- NOTE | 2018-01-15 16:53 | NUR ---
PRN medication; Patient is complaining of anxiety, agitation and diaphoresis with BP of 144/84, HR 86. Will continue to monitor patient for effectiveness of medication.
--- NOTE | 2018-01-15 17:53 | NUR ---
Re-assessment; Patient appears calm and comfortable at this time. PRN Clonidine noted to be effective.
--- NOTE | 2018-01-15 18:29 | NUR ---
End of shift note; Patient is AOX4, flushed face noted, appears anxious and agitated complaining of muscle aches, intermittent sweats, stomach cramps, irritability, mild tremors, headache and insomnia. Patient's last CIWA score is 10 at 1600. Patient received his last dose of Phenobarbital taper this morning, completed treatment without any adverse reactions. Patient received PRN Vistaril and clonidine, noted to be effective. Patient is medically cleared for discharge tomorrow to be transferred to [facility]. All safety measures secured. Will continue to monitor patient.
--- NOTE | 2018-01-15 19:10 | NUR ---
START OF SHIFT Patient is a 32-year-old male admitted on 01/10/18 for benzodiazepine withdrawal. Patient has completed a 5-day Phenobarbital taper, tolerated well, scheduled for discharge tomorrow morning. Patients last CIWA was 10 per endorsement. Patient received PRN Vistaril and PRN Clonidine today, both noted to be effective. Upon assessment, patient appears flushed and diaphoretic, room is odorous. Patient verbalizes feeling anxious about discharge tomorrow asking, What can I take tonight for anxiety? Patient also requests milk of magnesia tonight with his meds. Patient is on fall and seizure precautions with one possible seizure on 11/19/17. Safety measures in place, side rails up x2, bed locked in low position, call light within reach. Will continue to monitor.
[2018-01-15 20:00] VITALS: BP 142/84
--- NOTE | 2018-01-15 20:00 | NUR ---
CIWA 11 Patient is anxious, flushed and diaphoretic, restless and nervous about discharge tomorrow morning. Current CIWA 11. Patient is requesting to take all meds as soon as possible in order to sleep early and wake up in time for discharge which is scheduled for 0630. SN to administer meds as ordered. Will continue to monitor.
[2018-01-15] MEDS: MUPIROCIN 2% OINT 22 GM TUBE TP PRN (20:07)
[2018-01-15] MEDS: TRAZODONE 50 MG TABLET PO PRN (20:08)
[2018-01-15] MEDS: ACETAMINOPHEN ES 500 MG TABLET PO PRN (20:08)
[2018-01-15] MEDS: MAGNESIUM HYDROXIDE 30 ML LIQUID UDC PO PRN (20:08)
--- NOTE | 2018-01-15 20:08 | NUR ---
PRN TRAZODONE, TYLENOL, VISTARIL, MILK OF MAG, & BACTROBAN 2% OINTMENT Patient reports anxiety, difficulty sleeping, headache, constipation and is requesting Bactroban 2% ointment for his face. PRN Trazodone, Tylenol, Vistaril, and Milk of Magnesia given PO. Safety measures in place, side rails up x2, bed locked in low position, call light within reach. Will monitor for effectiveness.
--- NOTE | 2018-01-15 21:08 | NUR ---
PRN REASSESSMENT Patient reports improvement in headache and anxiety. He is ready for bed, under the covers with the lights off. Patient reports no BM as of now. All PRN medications noted to be effective with exception to MOM at this time. Safety measures in place, side rails up x2, bed locked in low position, call light within reach. Will continue to monitor.
--- NOTE | 2018-01-16 | NUR ---
VITALS REFUSED, CIWA DEFERRED Vital signs refused at this time, patient would like to have uninterrupted sleep until he needs to wake up for discharge preparation. CIWA deferred at this time due to patient sleeping; to be assessed and scored while patient is awake. Respirations even and unlabored, 16/min. Safety measures in place, side rails up x2, bed locked in low position, call light within reach. Will continue to monitor.
--- NOTE | 2018-01-16 03:59 | NUR ---
VITALS REFUSED, CIWA DEFERRED Patient refused vitals at this time. Respirations even and unlabored, 14/min. CIWA deferred due to patient sleeping; to be assessed while awake per protocol. Safety measures in place, side rails up x2, bed locked in low position, call light within reach. Will continue to monitor.
--- NOTE | 2018-01-16 06:49 | NUR ---
DISCHARGE NOTE Patient is a 32-year-old male admitted on 01/10/18 for benzodiazepine withdrawal. Patient has completed a 5-day Phenobarbital taper, tolerated well, discharging this morning. Patients last CIWA was 9 at 0630. Vital signs prior to discharge as follows: BP 134/92, HR 70, RR 18/min, O2 sat 98%, temp 98.2, pain 5/10 on pain scale. Patient slept for 8 hours, total intake of 1,500mL, void x3, stool x0 during shift. Patient received own belongings and home meds, as well as discharge instructions and prescriptions.
== END 2018-01-16 06:49 | disposition other institution (70) | DRG 895 ==
LOC: SRC 18:53
PROVIDERS: ADMIT Family Medicine Addiction Medicine; ATTEND Family Medicine Addiction Medicine
PROC: HZ2ZZZZ Detoxification Services for Substance Abuse Treatment (ICD-10-PCS; principal; 2018-01-10)
PROC: HZ41ZZZ Group Counseling for Substance Abuse Treatment, Behavioral (ICD-10-PCS; 2018-01-12)
PROC: HZ31ZZZ Individual Counseling for Substance Abuse Treatment, Behavioral (ICD-10-PCS; 2018-01-13)
DX: F13.230 Sedative, hypnotic or anxiolytic dependence with withdrawal, uncomplicated (principal); F31.30 Bipolar disorder, current episode depressed, mild or moderate severity, unspecified; Z72.89 Other problems related to lifestyle; Z87.891 Personal history of nicotine dependence; Z81.1 Family history of alcohol abuse and dependence; Z81.3 Family history of other psychoactive substance abuse and dependence; F41.1 Generalized anxiety disorder; E83.42 Hypomagnesemia; R74.0 Nonspecific elevation of levels of transaminase and lactic acid dehydrogenase [LDH]; F12.10 Cannabis abuse, uncomplicated; F43.10 Post-traumatic stress disorder, unspecified; G47.00 Insomnia, unspecified
CPT/HCPCS: 36415; 70030-TC; 80307; 80346; 80349; 83735; 84443; 85025; 86592; 86705; 86803; 87340; 87806; A9150; G0480; J8499; Q0162; Q0163